=== PATIENT | male | born 1945 | race Caucasian/White ===

== ENCOUNTER 2016-04-26 04:49 | Inpatient (IN) | payer OTHER ==
[2016-04-26] VITALS (11 sets, daily range): BP systolic 111–169; BP diastolic 57–102
[~2016-04-26] VITALS: Ht 165.1 cm; Wt 72.0 kg
--- NOTE | ~2016-04-26 | PR ---
[place], [place] PROGRESS NOTE NAME: RADHA PLEITEZ UNIT #: [id number] ROOM: 415 DOCTOR: CHANA HERNANDEZ MD BIRTHDATE: [birth year] DOS: 04/27/2016 CARDIOLOGY FOLLOWUP PROGRESS NOTE REASON FOR VISIT: CHF and valvular heart disease. HISTORY OF PRESENT ILLNESS: The patient was seen for his congestive heart failure, history of aortic valve replacement and also paroxysmal atrial fibrillation. He is feeling much better. Denies any chest pain or palpitations. No dizziness, no edema. He was on oxygen by nasal cannula. No PND, no orthopnea. His edema is better. REVIEW OF SYSTEMS: Review of the 8 systems negative except as mentioned above. RHYTHM STRIPS: The patient was in atrial fibrillation. PHYSICAL EXAMINATION: VITAL SIGNS: Blood pressure 137/78, pulse 62 and respiratory rate was 20. GENERAL: Alert, comfortable, in no acute distress. HEENT: Pupils are round and equal. No jaundice. Tongue was moist and pharynx was clear. NECK: Supple, no distended neck veins, no carotid bruit. CHEST: Symmetrical, nontender. LUNGS: Few scattered rhonchi. HEART: Irregularly irregular. Second heart sound was metallic sound, grade 1/6 systolic murmur. No palpable thrills. ABDOMEN: Benign, nontender. Bowel sounds normal. EXTREMITIES: Showed 1+ edema. DIAGNOSTIC TESTS: Review of the diagnostic test, hemoglobin was 10.2 and INR 3.3. MEDICATIONS: Reviewed. IMPRESSION: 1. Acute on chronic systolic heart failure, improving. 2. Status post aortic valve replacement, mechanical valve with normal function. 3. Chronic atrial fibrillation, rate controlled. 4. Anemia. 5. Chronic obstructive pulmonary disease exacerbation. 6. Home oxygen. 7. Left ventricular dysfunction, ejection fraction 35%. RECOMMENDATIONS: 1. Continue current medications including his Coumadin. 2. He is gradually improving. 3. He can be transferred to step-down unit. 4. No family at bedside. [place], [place] PROGRESS NOTE NAME: RADHA PLEITEZ UNIT #: [id number] ROOM: 415 DOCTOR: CHANA HERNANDEZ MD BIRTHDATE: [birth year] CHANA HERNANDEZ MD CM:BRAIN [id number] CHANA HERNANDEZ MD 04/28/167 interface
--- NOTE | ~2016-04-26 | PR ---
[place], [place] PROGRESS NOTE NAME: RADHA PLEITEZ UNIT #: [id number] ROOM: 415 DOCTOR: DAVID ROGERS,CHANA BIRTHDATE: [birth year] DOS: 05/02/2016 I personally examined and assessed the patient today. This note is an addendum to the note dictated by the resident physician, Dr. Mallika Fitch. Dr. Fitch's examination and assessment reflects my work. Ms. Pleitez is feeling better. PHYSICAL EXAMINATION: HEART: Irregular, grade 1/6 systolic murmur. Second heart sound mechanical sound. EXTREMITIES: Showed trace edema. IMPRESSION: 1. Congestive heart failure, acute, improving. 2. Mechanical aortic valve, stable. 3. Atrial fibrillation. 4. Anemia. RECOMMENDATIONS: 1. Continue current medications. 2. His INR is 1.9 today. Hence, I would start Lovenox 1 mg/kg every 12 hours until his INR is greater than 2.5 due to his mechanical valve and atrial fibrillation. 3. He can be discharged to rehab from the cardiac standpoint. However, he needs to stay on Lovenox until the INR above 2.5. CHANA HERNANDEZ MD CM:PNTRANS [phone] CHANA HERNANDEZ MD 05/03/16 0244 interface
--- NOTE | ~2016-04-26 | PR ---
[place], [place] PROGRESS NOTE NAME: RADHA PLEITEZ UNIT #: [id number] ROOM: 415 DOCTOR: DAVID ROGESR,CHANA BIRTHDATE: [birth year] DOS: 04/29/2016 REASON FOR VISIT: Congestive heart failure and atrial fibrillation. Mr. Pleitez is still little short of breath and with some cough with minimal sputum. Denies any chest pain or palpitations. No PND, no orthopnea. Edema is much better. No fever or chills. No nausea, vomiting. REVIEW OF SYSTEMS: Review of the 8 systems negative except as mentioned above. RHYTHM STRIPS: The patient in atrial fibrillation. PHYSICAL EXAMINATION: [place], [place] PROGRESS NOTE NAME: RADHA PLEITEZ UNIT #: [id number] ROOM: 415 DOCTOR: DAVID ROGERS,CHANA BIRTHDATE: [birth year] VITAL SIGNS: Blood pressure 110/58, pulse 87, respiration rate was 20. GENERAL: Alert, comfortable, in no acute distress. HEENT: Pupils are round and equal. No jaundice. Tongue was moist and pharynx was clear. NECK: Supple. No distinct veins. No carotid bruit. CHEST: Symmetrical, nontender. LUNGS: Few scattered rhonchi and diminished at bases. HEART: Irregular. No S3. Second heart sound was mechanical sound. ABDOMEN: Benign, nontender. Bowel sounds normal. EXTREMITIES: Showed 1+ edema. Distal pulses are palpable. SKIN: Warm and dry. No cyanosis, no clubbing. NEUROLOGIC: The patient is alert, oriented. No focal neurologic deficit. RECTAL: Deferred. LABORATORY DATA: Review of the diagnostic test, INR 7.3, hemoglobin 9.4, potassium 2.9. IMPRESSION: 1. Wipud-qy-zowrtyj systolic heart failure, gradual improving. 2. Mechanical aortic valve with normal function. 3. Coagulopathy. 4. Anemia. 5. Hypokalemia. 6. Hypoxemia with home oxygen. 7. Chronic respiratory failure. RECOMMENDATIONS: 1. Continue IV diuretics. 2. Monitor the heart rates and renal function and blood pressure. 3. Continue to hold Coumadin. 4. Supplement his potassium. 5. There is no family at bedside. [place], [place] PROGRESS NOTE NAME: RADHA PLEITEZ UNIT #: [id number] ROOM: [facility] DOCTOR: CHANA HERNANDEZ MD BIRTHDATE: [birth year] CHAAN HERNANDEZ MD CM:BRAIN [phone] CHANA HERNANDEZ MD 06/04/16 1104 interface
--- NOTE | ~2016-04-26 | PR ---
[place], [place] PROGRESS NOTE NAME: RADHA PLEITEZ UNIT #: [id number] ROOM: 415 DOCTOR: DAVID ROGERS,CHANA BIRTHDATE: [birth year] DOS: 04/28/2016 REASON FOR VISIT: Congestive heart failure, atrial fibrillation, and valvular heart disease. HISTORY OF PRESENT ILLNESS: Mr. Pleitez is feeling better, less short of breath. Denies any chest pain, palpitations, or dizziness. He slept good last night. No orthopnea, no PND. REVIEW OF SYSTEMS: Review of the 8 systems negative except as mentioned above. Patient was in atrial fibrillation on the monitor. PHYSICAL EXAMINATION: VITAL SIGNS: Blood pressure 108/56, pulse was 92, respiratory rate 18. GENERAL: Alert, comfortable, in no acute distress. HEENT: Pupils are round. No jaundice. Tongue was moist and pharynx was clear. NECK: Supple, no distended neck veins, no carotid bruit. CHEST: Symmetrical, nontender. LUNGS: A few scattered rhonchi and diminished at bases. HEART: Irregularly irregular. The second heart sound is mechanical sound, grade 1/6 systolic murmur. No palpable thrills. ABDOMEN: Benign, nontender. Bowel sounds normal. EXTREMITIES: Showed 1+ edema. Distal pulses are palpable. SKIN: Warm and dry. No cyanosis, no clubbing. NEUROLOGIC: The patient is alert, oriented. No focal neurologic deficit. PSYCHIATRIC: The patient is alert with good mood and affect. RECTAL: Deferred. GENITOURINARY: Deferred. IMPRESSION: 1. Acute on chronic systolic heart failure gradually improving. 2. On home oxygen. 3. Chronic atrial fibrillation. 4. Status post aortic valve replacement, mechanical valve in 1990, on Coumadin. 5. Coagulopathy. 6. Home oxygen. 7. Anemia. RECOMMENDATIONS: 1. We will hold the Coumadin for elevated INR and monitor his INR. 2. He is getting Lasix 60 mg b.i.d., 3. Monitor daily in's and out's and weight. 4. Supplement his potassium and continue to monitor his blood pressure and heart rates. [place], [place] PROGRESS NOTE NAME: RADHA PLEITEZ UNIT #: [id number] ROOM: 415 DOCTOR: CHANA HERNANDEZ MD BIRTHDATE: [birth year] CHANA HERNANDEZ MD CM:PNTRANS [phone] CHANA HERNANDEZ MD 06/04/16 1106 interface
--- NOTE | ~2016-04-26 | PR ---
[place], [place] PROGRESS NOTE NAME: RADHA PLEITEZ UNIT #: [id number] ROOM: 415 DOCTOR: CHANA HERNANDEZ MD BIRTHDATE: [birth year] DOS: 04/30/2016 REASON FOR VISIT: CHF and atrial fibrillation. SUBJECTIVE: The patient is feeling better today, less short of breath. Denies any fever and chills. No chest pain, no palpitations, no dizziness. No PND or orthopnea. His edema is better. REVIEW OF SYSTEMS: Review of the 8 systems negative except as mentioned above. RHYTHM STRIPS: The patient is in atrial fibrillation. PHYSICAL EXAMINATION: VITAL SIGNS: Blood pressure 118/56, pulse 64, respiratory rate was 18. GENERAL: Alert, comfortable, in no acute distress. HEENT: Pupils are round. No jaundice. NECK: Supple, no distended veins. No carotid bruit. CHEST: Symmetrical, nontender. LUNGS: Few scattered rhonchi, diminished at bases. HEART: Irregularly irregular. No S3. Second heart sound is mechanical sound. No palpable thrills. ABDOMEN: Benign, nontender. Bowel sounds normal. EXTREMITIES: Showed trace to 1+ edema. Distal pulses are palpable. SKIN: Warm and dry. No cyanosis, no clubbing. NEUROLOGIC: The patient is alert, oriented. No focal neurologic deficit. RECTAL: Deferred. REVIEW OF THE DIAGNOSTIC TEST: His INR 3.9, spquifgyhy16.2, potassium 2.2, calcium 7.2. IMPRESSION: 1. Acute systolic heart failure. 2. Chronic atrial fibrillation. 3. Status post mechanical aortic valve replacement. 4. Coagulopathy. 5. Anemia. 6. Hypokalemia. 7. Respiratory failure. RECOMMENDATIONS: 1. Continue diuretics. He is feeling better. 2. Blood pressures and heart rates are stable. 3. Continue to hold his Coumadin. Once the INR comes below 3.5 resume his Coumadin. 4. Replace his potassium. 5. Continue his rest of the cardiac medications. [place], [place] PROGRESS NOTE NAME: RADHA PLEITEZ UNIT #: [id number] ROOM: 415 DOCTOR: CHANA HERNANDEZ MD BIRTHDATE: [birth year] CHANA HERNANDEZ MD CM:BRAIN [id number] CHANA HERNANDEZ MD 05/01/16815 interface
--- NOTE | ~2016-04-26 | PR ---
[place], [place] PROGRESS NOTE NAME: RADHA PLEITEZ UNIT #: [id number] ROOM: 415 DOCTOR: DAVID ROGERS,CHANA BIRTHDATE: [birth year] DOS: 05/01/2016 CARDIOLOGY PROGRESS NOTE REASON FOR VISIT: Atrial fibrillation and CHF. SUBJECTIVE: The patient is feeling much better today. Denies any chest pain or palpitations. He has ambulated in the hallway without much difficulty. No PND, no orthopnea. Edema is mostly resolved. No fever and chills. No nausea, vomiting, diarrhea. REVIEW OF SYSTEMS: Review of the 8 systems negative except as mentioned above. RHYTHM STRIPS: The patient is in atrial fibrillation. PHYSICAL EXAMINATION: VITAL SIGNS: Reviewed. GENERAL: Alert, comfortable, in no acute distress. HEAD AND NECK: Neck supple. No distended neck veins. No carotid bruit. Pupils are round and equal. No jaundice. Tongue was moist and pharynx was clear. CHEST: Symmetrical, nontender. LUNGS: Clear to auscultation bilaterally. HEART: Irregular, grade 1/6 systolic murmur. There is second heart sound with mechanical click. No palpable thrills. ABDOMEN: Benign, nontender. Bowel sounds normal. EXTREMITIES: Showed trace edema. Distal pulses are palpable. SKIN: Warm and dry. No cyanosis, no clubbing. REVIEW OF THE DIAGNOSTIC TESTS: Rhythm strips and labs reviewed as available. IMPRESSION: 1. Acute on chronic systolic heart failure. 2. Chronic atrial fibrillation. 3. Mechanical aortic valve. 4. Anemia. RECOMMENDATIONS: 1. Continue current medications. 2. If he is stable from the other consults, he can be discharged home tomorrow to [facility]. 3. Keep his INR between 2-3. [place], [place] PROGRESS NOTE NAME: RADHA PLEITEZ UNIT #: [id number] ROOM: 415 DOCTOR: CHANA HERNANDEZ MD BIRTHDATE: [birth year] CHANA HERNANDEZ MD CM:PNTRANS [phone] CHANA HERNANDEZ MD 05/02/16 0620 interface
[~2016-04-26 04:49] MED LIST: AMLODIPINE BES2.5 MG PO; ATENOLOL100 M1 PO; ATENOLOL100 MG PO; ATORVASTATIN CA10 M1 PO; CARDURA1 MG PO; COUMADIN1 MG PO; COUMADIN3 M1 PO; DIABETA2.5 MG PO; FISH OIL500 M1 PO; HYDROCODONE BIT1 T11 PO; ISOSORBIDE30 MG PO; LANTUS100 U/ML SC; LEVAQUIN750 M1 PO; LISINOPRIL20 MG PO; LOSARTAN POTASS50 M1 PO; METFORMIN1000 MG PO; METFORMIN500 MG PO; MUCINEX DM 30/61 TAB PO; MYSOLINE50 M1 PO; MYSOLINE50 M2 PO; NIACIN250 MG PO; OXYGEN NAS; PREDNISONE50 MG PO; PROVENTIL0.09 MG/A1 INH; SYMBICORT1 AE1 INH; VIBRAMYCIN100 MG PO; VITAMIN B121000 MC2 IM
[2016-04-26 05:12] LABS: BASO % 0.1 % (0.0-1.0); HEMATOCRIT 36.4 % (42.0-52.0); HEMOGLOBIN 11.4 g/dl (14.0-18.0); LYMPH # 1.2 10*3/uL (1.3-4.4); LYMPH % 16.5 % (27.0-41.0); MEAN CELL VOLUME 94.8 fl (80.0-94.0); MEAN CORPUSCULAR HGB 29.7 pg (27.0-31.0); MEAN CORPUSCULAR HGB CONC 31.3 g/dl (33.0-37.0); MEAN PLATELET VOLUME 11.1 fl (9.6-12.3); MONO # 0.5 10*3/uL (0.1-1.0); MONO % 6.4 % (3.0-9.0); NEUT # 5.4 10*3/uL (2.3-7.9); NEUT % 76.7 % (47.0-73.0); PLATELET COUNT AUTOMATED 171 10*3/uL (130-400); RED BLOOD COUNT 3.84 10*6/uL (4.50-5.90); RED CELL DISTRI WIDTH 14.9 % (0-14.5)
[2016-04-26 05:21] LABS: PROTHROMBIN TIME 33.2 SECONDS (9.0-12.4)
[2016-04-26 05:33] LABS: ALBUMIN 2.6 gm/dl (3.1-4.5); ALKALINE PHOSPHATASE 162 U/L (45-117); BILIRUBIN, TOTAL 0.7 mg/dl (0.2-1.0); BUN 16 mg/dl (7-24); CARBON DIOXIDE 29 mmol/L (21-32); CHLORIDE 106 mmol/L (98-107); CKMB 0.8 ng/ml (0.5-3.6); CPK 99 U/L (39-308); EST GLOM FILT AFRICAN AMERICAN > 60 ml/min; GLUCOSE 378 mg/dL (65-99); POTASSIUM 4.7 mmol/L (3.5-5.1); SGOT/AST 74 IU/L (3-35); SGPT/ALT 36 U/L (12-78); SODIUM 144 mmol/L (136-145); TOTAL PROTEIN 6.4 gm/dL (6.4-8.2)
[2016-04-26 05:37] LABS: TROPONIN I 0.039 ng/ml (<0.5)
[2016-04-26 07:19] LABS: LA>2 REFLEX 2 HR DRAW NOW
[2016-04-26 08:08] LABS: ABG BASE EXCESS 2.7 mmol/L (-2.0-2.0); ABG CO2 CONTENT 29.9 mmol/L (23-27); ABG HCO3 28.3 mmol/l (22-26); ABG TEMPERATURE 99.9 F (98.0-99.0); ARTERIAL BLOOD GAS PH 7.345 (7.35-7.45)
[2016-04-26 08:14] LABS: ARTERIAL BLOOD GAS PO2 31.9 mmHg (80-90)
[2016-04-26] MEDS ORDERED: AVPAK PRIMIDONE50 M1 PO (09:43)
[2016-04-26] MEDS ORDERED: COZAAR100 MG PO (09:44)
[2016-04-26] MEDS ORDERED: VITAMIN D3400 UNIT PO (09:47)
[2016-04-26] MEDS ORDERED: NASONEX0.05 MG/AC NAS (09:48)
[2016-04-26 12:25] LABS: TROPONIN I 0.075 ng/ml (<0.5)
[2016-04-26 12:26] LABS: CKMB < 0.5 ng/ml (0.5-3.6); CPK 50 U/L (39-308)
[2016-04-26 16:21] LABS: BILIRUBIN NEGATIVE (NEGATIVE); BLOOD NEGATIVE (NEGATIVE); CLARITY SL CLOUDY (CLEAR); COLOR YELLOW (YELLOW); GLUCOSE 2+ (NEGATIVE); KETONE 1+ (NEGATIVE); LEUKO ESTERASE NEGATIVE (NEGATIVE); NITRITE NEGATIVE (NEGATIVE); PH 5.5 (5.0-9.0); PROTEIN 1+ (NEGATIVE); SPECIFIC GRAVITY 1.025 (1.005-1.030); UROBILINOGEN 0.2 E.U./dl (0.2-1.0)
[2016-04-26 16:44] LABS: BACTERIA 2+; EPITHELIAL CELLS 0-2; RBC 0-2 rbc/hpf (0-2); URIC ACID CRYSTALS 2+; URINE REFLEX COMMENT YES (NO)
[2016-04-26 18:17] LABS: CKMB 0.7 ng/ml (0.5-3.6); TROPONIN I 0.082 ng/ml (<0.5)
[2016-04-27] VITALS: BP 137/65
[2016-04-27 00:34] LABS: TROPONIN I 0.081 ng/ml (<0.5)
[2016-04-27 04:00] VITALS: BP 137/65
[2016-04-27 05:58] LABS: ALKALINE PHOSPHATASE 107 U/L (45-117); BILIRUBIN, TOTAL 0.7 mg/dl (0.2-1.0); BUN 17 mg/dl (7-24); CARBON DIOXIDE 29 mmol/L (21-32); CHLORIDE 106 mmol/L (98-107); CHOLESTEROL 163 mg/dL (<200); EST GLOM FILT AFRICAN AMERICAN > 60 ml/min; FREE T4 1.51 ng/dl (0.76-1.46); GLUCOSE 362 mg/dL (65-99); HDL CHOLESTEROL 39 mg/dl (40-60); LDL CHOLESTEROL 102 mg/dL (9-159); MAGNESIUM 1.2 mg/dL (1.5-2.1); SGOT/AST 28 IU/L (3-35); SGPT/ALT 25 U/L (12-78); SODIUM 146 mmol/L (136-145); TOTAL PROTEIN 5.3 gm/dL (6.4-8.2); TRIGLYCERIDES 110 mg/dl (<150); VLDL CHOLESTEROL 22 mg/dL (6-40)
[2016-04-27 06:04] LABS: POTASSIUM 2.4 mmol/L (3.5-5.1)
[2016-04-27 06:30] LABS: HEMOGLOBIN A1c 11.9 % (4.8-5.6)
[2016-04-27 06:50] LABS: INTERNATIONAL NORM RATIO 3.3 (2.0-3.5); PROTHROMBIN TIME 35.9 SECONDS (9.0-12.4)
[2016-04-27 06:55] LABS: MEAN CORPUSCULAR HGB 29.8 pg (27.0-31.0); MEAN CORPUSCULAR HGB CONC 33.3 g/dl (33.0-37.0); MEAN PLATELET VOLUME 10.9 fl (9.6-12.3); RED BLOOD COUNT 3.15 10*6/uL (4.50-5.90); RED CELL DISTRI WIDTH 14.3 % (0-14.5); WHITE BLOOD COUNT 3.3 10*3/uL (4.8-10.8)
[2016-04-27 07:19] LABS: HEMOGLOBIN 9.4 g/dl (14.0-18.0); MEAN CELL VOLUME 89.5 fl (80.0-94.0)
[2016-04-27 07:20] LABS: HEMATOCRIT 28.2 % (42.0-52.0); PLATELET COUNT AUTOMATED 83 10*3/uL (130-400)
[2016-04-27 07:22] LABS: ATYPICAL LYMPHS 1 % (0-0); LYMPHOCYTE # 0.4 10*3/uL (1.3-4.4); MONOCYTE # 0.3 10*3/uL (0.1-1.0); NEUTROPHIL # 2.6 10*3/uL (2.3-7.9); NEUTROPHILS 80 % (47-73); TOTAL CELLS COUNTED 100 #CELLS
[2016-04-27 07:23] LABS: PLATELET SUFFICIENCY LOW (NORMAL)
[2016-04-27 07:24] LABS: POLYCHROMASIA SLIGHT
[2016-04-27 07:46] LABS: FOLIC ACID 5.64 ng/mL (>5.38)
[2016-04-27 08:00] VITALS: BP 139/67
[2016-04-27 08:46] LABS: HEMATOCRIT 31.8 % (42.0-52.0); HEMOGLOBIN 10.2 g/dl (14.0-18.0); MEAN CELL VOLUME 91.4 fl (80.0-94.0); MEAN CORPUSCULAR HGB 29.3 pg (27.0-31.0); MEAN CORPUSCULAR HGB CONC 32.1 g/dl (33.0-37.0); MEAN PLATELET VOLUME 10.8 fl (9.6-12.3); PLATELET COUNT AUTOMATED 85 10*3/uL (130-400); RED BLOOD COUNT 3.48 10*6/uL (4.50-5.90); RED CELL DISTRI WIDTH 14.3 % (0-14.5); WHITE BLOOD COUNT 5.4 10*3/uL (4.8-10.8)
[2016-04-27 09:37] LABS: LYMPHOCYTE # 0.6 10*3/uL (1.3-4.4); MONOCYTE # 0.2 10*3/uL (0.1-1.0); NEUTROPHIL # 4.6 10*3/uL (2.3-7.9); NEUTROPHILS 85 % (47-73); PLATELET SUFFICIENCY LOW (NORMAL); POLYCHROMASIA SLIGHT; TOTAL CELLS COUNTED 100 #CELLS
[2016-04-27 12:00] VITALS: BP 137/78
[2016-04-27 16:00] VITALS: BP 133/84
[2016-04-27 16:57] LABS: BUN 18 mg/dl (7-24); CARBON DIOXIDE 27 mmol/L (21-32); CHLORIDE 104 mmol/L (98-107); EST GLOM FILT AFRICAN AMERICAN > 60 ml/min; GLUCOSE 300 mg/dL (65-99); POTASSIUM 2.9 mmol/L (3.5-5.1); SODIUM 144 mmol/L (136-145)
[2016-04-27 20:00] VITALS: BP 116/59
[2016-04-28] VITALS: BP 113/69
[2016-04-28 07:40] LABS: HEMATOCRIT 30.9 % (42.0-52.0); HEMOGLOBIN 10.3 g/dl (14.0-18.0); MEAN CELL VOLUME 89.8 fl (80.0-94.0); MEAN CORPUSCULAR HGB 29.9 pg (27.0-31.0); MEAN CORPUSCULAR HGB CONC 33.3 g/dl (33.0-37.0); MEAN PLATELET VOLUME 10.3 fl (9.6-12.3); PLATELET COUNT AUTOMATED 97 10*3/uL (130-400); RED BLOOD COUNT 3.44 10*6/uL (4.50-5.90); RED CELL DISTRI WIDTH 14.4 % (0-14.5); WHITE BLOOD COUNT 8.9 10*3/uL (4.8-10.8)
[2016-04-28 07:57] LABS: ALBUMIN 2.2 gm/dl (3.1-4.5); ALKALINE PHOSPHATASE 94 U/L (45-117); BILIRUBIN, TOTAL 0.6 mg/dl (0.2-1.0); BUN 18 mg/dl (7-24); CARBON DIOXIDE 32 mmol/L (21-32); CHLORIDE 104 mmol/L (98-107); EST GLOM FILT AFRICAN AMERICAN > 60 ml/min; GLUCOSE 88 mg/dL (65-99); MAGNESIUM 1.3 mg/dL (1.5-2.1); PHOSPHOROUS 2.6 mg/dL (2.5-4.9); POTASSIUM 2.8 mmol/L (3.5-5.1); PROTHROMBIN TIME 99.9 SECONDS (9.0-12.4); SGOT/AST 26 IU/L (3-35); SGPT/ALT 25 U/L (12-78); SODIUM 145 mmol/L (136-145); TOTAL PROTEIN 5.8 gm/dL (6.4-8.2)
[2016-04-28 08:00] VITALS: BP 108/56
[2016-04-28 08:10] LABS: INTERNATIONAL NORM RATIO 8.8 (2.0-3.5)
[2016-04-28 08:32] LABS: ATYPICAL LYMPHS 1 % (0-0); LYMPHOCYTE # 0.4 10*3/uL (1.3-4.4); MONOCYTE # 0.1 10*3/uL (0.1-1.0); NEUTROPHIL # 8.4 10*3/uL (2.3-7.9); NEUTROPHILS 94 % (47-73); TOTAL CELLS COUNTED 100 #CELLS
[2016-04-28 08:33] LABS: PLATELET SUFFICIENCY LOW (NORMAL); POLYCHROMASIA SLIGHT; SPHEROCYTES FEW
[2016-04-28 12:00] VITALS: BP 112/54
[2016-04-28 16:00] VITALS: BP 100/49
[2016-04-28 20:00] VITALS: BP 107/55
[2016-04-29] VITALS: BP 98/61
[2016-04-29 07:42] LABS: HEMATOCRIT 28.2 % (42.0-52.0); HEMOGLOBIN 9.4 g/dl (14.0-18.0); MEAN CELL VOLUME 89.2 fl (80.0-94.0); MEAN CORPUSCULAR HGB 29.7 pg (27.0-31.0); MEAN CORPUSCULAR HGB CONC 33.3 g/dl (33.0-37.0); MEAN PLATELET VOLUME 10.7 fl (9.6-12.3); PLATELET COUNT AUTOMATED 85 10*3/uL (130-400); RED BLOOD COUNT 3.16 10*6/uL (4.50-5.90); RED CELL DISTRI WIDTH 14.6 % (0-14.5)
[2016-04-29 07:54] LABS: BUN 21 mg/dl (7-24); CARBON DIOXIDE 32 mmol/L (21-32); CHLORIDE 99 mmol/L (98-107); EST GLOM FILT AFRICAN AMERICAN > 60 ml/min; GLUCOSE 99 mg/dL (65-99); MAGNESIUM 1.9 mg/dL (1.5-2.1); PHOSPHOROUS 3.7 mg/dL (2.5-4.9); POTASSIUM 2.9 mmol/L (3.5-5.1); SODIUM 141 mmol/L (136-145)
[2016-04-29 07:57] LABS: LYMPHOCYTE # 0.6 10*3/uL (1.3-4.4); MONOCYTE # 0.1 10*3/uL (0.1-1.0); NEUTROPHIL # 4.4 10*3/uL (2.3-7.9); NEUTROPHILS 88 % (47-73); PLATELET SUFFICIENCY LOW (NORMAL); ROULEAUX SLIGHT; TOTAL CELLS COUNTED 100 #CELLS
[2016-04-29 07:58] LABS: OVALOCYTES FEW
[2016-04-29 08:00] VITALS: BP 110/58
[2016-04-29 08:05] LABS: PROTHROMBIN TIME 82.3 SECONDS (9.0-12.4)
[2016-04-29 08:08] LABS: INTERNATIONAL NORM RATIO 7.3 (2.0-3.5)
[2016-04-29 12:00] VITALS: BP 104/54
[2016-04-29 16:00] VITALS: BP 105/73
[2016-04-29 16:09] LABS: PHENOBARBITAL SERUM None Detected ug/mL (15-40); PRIMIDONE (MYSOLINE) None Detected ug/mL (5.0-12.0)
[2016-04-29 20:00] VITALS: BP 114/57
[2016-04-30] VITALS: BP 131/72
[2016-04-30 06:51] LABS: HEMATOCRIT 31.2 % (42.0-52.0); HEMOGLOBIN 10.2 g/dl (14.0-18.0); MEAN CELL VOLUME 88.4 fl (80.0-94.0); MEAN CORPUSCULAR HGB 28.9 pg (27.0-31.0); MEAN CORPUSCULAR HGB CONC 32.7 g/dl (33.0-37.0); MEAN PLATELET VOLUME 11.2 fl (9.6-12.3); RED BLOOD COUNT 3.53 10*6/uL (4.50-5.90); RED CELL DISTRI WIDTH 14.3 % (0-14.5); WHITE BLOOD COUNT 5.5 10*3/uL (4.8-10.8)
[2016-04-30 07:21] LABS: BUN 19 mg/dl (7-24); CARBON DIOXIDE 36 mmol/L (21-32); CHLORIDE 94 mmol/L (98-107); EST GLOM FILT AFRICAN AMERICAN > 60 ml/min; GLUCOSE 69 mg/dL (65-99); MAGNESIUM 2.3 mg/dL (1.5-2.1); SODIUM 140 mmol/L (136-145)
[2016-04-30 07:22] LABS: PLATELET COUNT AUTOMATED 111 10*3/uL (130-400)
[2016-04-30 07:26] LABS: INTERNATIONAL NORM RATIO 3.9 (2.0-3.5); PROTHROMBIN TIME 43.5 SECONDS (9.0-12.4)
[2016-04-30 07:29] LABS: POTASSIUM 2.2 mmol/L (3.5-5.1)
[2016-04-30 07:39] LABS: LYMPHOCYTE # 0.4 10*3/uL (1.3-4.4); MONOCYTE # 0.3 10*3/uL (0.1-1.0); NEUTROPHIL # 4.8 10*3/uL (2.3-7.9); NEUTROPHILS 88 % (47-73); TOTAL CELLS COUNTED 100 #CELLS
[2016-04-30 07:40] LABS: PLATELET SUFFICIENCY LOW (NORMAL)
[2016-04-30 08:00] VITALS: BP 118/56
[2016-04-30 12:00] VITALS: BP 120/60
[2016-04-30 16:00] VITALS: BP 112/58
[2016-04-30 17:15] LABS: BUN 19 mg/dl (7-24); CARBON DIOXIDE 34 mmol/L (21-32); CHLORIDE 96 mmol/L (98-107); EST GLOM FILT AFRICAN AMERICAN > 60 ml/min; GLUCOSE 352 mg/dL (65-99); SODIUM 139 mmol/L (136-145)
[2016-04-30 17:21] LABS: POTASSIUM 3.6 mmol/L (3.5-5.1)
[2016-04-30 20:00] VITALS: BP 128/68
[2016-05-01] VITALS: BP 110/85
[2016-05-01 05:59] LABS: BUN 20 mg/dl (7-24); CARBON DIOXIDE 33 mmol/L (21-32); CHLORIDE 99 mmol/L (98-107); EST GLOM FILT AFRICAN AMERICAN > 60 ml/min; GLUCOSE 205 mg/dL (65-99); POTASSIUM 3.4 mmol/L (3.5-5.1); SODIUM 141 mmol/L (136-145)
[2016-05-01 06:24] LABS: INTERNATIONAL NORM RATIO 1.9 (2.0-3.5); PROTHROMBIN TIME 20.7 SECONDS (9.0-12.4)
[2016-05-01 08:00] VITALS: BP 102/80
[2016-05-01 12:00] VITALS: BP 105/71
[2016-05-01 16:00] VITALS: BP 115/68
[2016-05-01 20:00] VITALS: BP 119/67
[2016-05-02] VITALS: BP 132/74
[2016-05-02 06:28] LABS: ALBUMIN 1.8 gm/dl (3.1-4.5); BUN 21 mg/dl (7-24); CARBON DIOXIDE 32 mmol/L (21-32); CHLORIDE 101 mmol/L (98-107); EST GLOM FILT AFRICAN AMERICAN > 60 ml/min; GLUCOSE 251 mg/dL (65-99); PHOSPHOROUS 1.9 mg/dL (2.5-4.9); POTASSIUM 4.2 mmol/L (3.5-5.1); SODIUM 139 mmol/L (136-145)
[2016-05-02 06:30] LABS: INTERNATIONAL NORM RATIO 1.9 (2.0-3.5); PROTHROMBIN TIME 20.5 SECONDS (9.0-12.4)
[2016-05-02 08:00] VITALS: BP 116/76
[2016-05-02] MEDS ORDERED: MAGNESIUM OXID400 MG PO (10:06)
[2016-05-02] MEDS ORDERED: CALCIUM CARBON500 M1 PO (10:06)
[2016-05-02] MEDS ORDERED: FUROSEMIDE20 M1 PO (10:06)
[2016-05-02] MEDS ORDERED: K-PHOS500 MG PO (10:06)
[2016-05-02] MEDS ORDERED: LEVAQUIN750 M1 PO (10:09)
[2016-05-02] MEDS ORDERED: PREDNISONE10 MG PO (10:09)
[2016-05-02] MEDS ORDERED: KLOR-CON 1010 ME1 PO (11:46)
[2016-05-02 12:00] VITALS: BP 98/47
[2016-05-06] MEDS ORDERED: DULCOLAX5 M1 PO (12:55)
[2016-05-06] MEDS ORDERED: GLUTOSE 1515 GM PO (12:56)
[2016-05-06] MEDS ORDERED: MILK OF MA400 MG/51 PO (12:57)
[2016-05-06] MEDS ORDERED: MILLIPRED5 MG PO (12:58)
[2016-05-13] MEDS ORDERED: Coumadin3 MG PO (09:46)
[2016-05-13] MEDS ORDERED: TORSEMIDE20 MG PO (09:46)
[2016-05-13] MEDS ORDERED: METOPROLOL SUCC25 M2 PO (09:46)
[2016-05-13] MEDS ORDERED: PREDNISONE10 MG PO (09:48)
[2016-05-13] MEDS ORDERED: DOXYCYCLINE100 M3 PO (09:48)
[2016-05-13] MEDS ORDERED: MUCINEX ER600 MG PO (09:48)
[2016-05-27] MEDS ORDERED: COUMADIN4 M2 PO (03:12)
[2016-05-27] MEDS ORDERED: VITAMIN D400 I1 PO (03:15)
[2016-05-27] MEDS ORDERED: K-TAB20 MEQ PO (06:00)
[2016-05-27] MEDS ORDERED: HYDROCODONE BIT1 T11 PO (06:23)
[2016-05-31] MEDS ORDERED: TOPROL XL50 M1 PO (08:33)
[2016-05-31] MEDS ORDERED: BUMEX2.5 MG/10 PO (08:33)
[2016-05-31] MEDS ORDERED: ALDACTONE25 MG PO (08:33)
== END 2016-05-02 12:49 | disposition other institution (70) | DRG 871 ==
LOC: ED 04:49 → ICCU 05:36 → 4E 05:36 → ICCU 11:00 → 4E 04-27 14:26
PROVIDERS: Emergency Medicine; Family Medicine; Hospitalist; Internal Medicine; Internal Medicine Nephrology; Student in an Organized Health Care Education/Training Program
DX: A41.9 Sepsis, unspecified organism (principal); J96.21 Acute and chronic respiratory failure with hypoxia; I50.43 Acute on chronic combined systolic (congestive) and diastolic (congestive) heart failure; E44.0 Moderate protein-calorie malnutrition; E87.2 Acidosis; J18.1 Lobar pneumonia, unspecified organism; I11.0 Hypertensive heart disease with heart failure; B37.0 Candidal stomatitis; J44.0 Chronic obstructive pulmonary disease with (acute) lower respiratory infection; J44.1 Chronic obstructive pulmonary disease with (acute) exacerbation; R65.20 Severe sepsis without septic shock; I48.2 Chronic atrial fibrillation; E78.5 Hyperlipidemia, unspecified; D72.810 Lymphocytopenia; D53.9 Nutritional anemia, unspecified; E11.65 Type 2 diabetes mellitus with hyperglycemia; E87.6 Hypokalemia; D47.3 Essential (hemorrhagic) thrombocythemia; Z99.81 Dependence on supplemental oxygen; Z87.442 Personal history of urinary calculi; Z95.2 Presence of prosthetic heart valve; Z95.1 Presence of aortocoronary bypass graft; Z90.49 Acquired absence of other specified parts of digestive tract; Z87.891 Personal history of nicotine dependence; Z80.0 Family history of malignant neoplasm of digestive organs; Z84.89 Family history of other specified conditions